=== PATIENT | female | born 1995 | race Caucasian/White ===

== ENCOUNTER → 2017-02-05 | Outpatient (CLI) | payer BC ==
[~2017-02-05] MED LIST: BCPILLS PO; OXYC5TAB PO
== END | disposition home or self-care (01) ==
LOC: C.LAB 11:08
PROVIDERS: ATTEND Physician Assistant
DX: R10.13 Epigastric pain (principal)

== ENCOUNTER → 2017-02-05 | Outpatient (CLI) | payer BC ==
--- NOTE | 2017-02-05 11:01 | DIAGNOSTIC IMAGING REPORT ---
ABDOMEN COMPLETE (US) CLINICAL HISTORY: EPIGASTRIC PAIN COMPARISON STUDY: Biliary ultrasound dated 11/02/2015 FINDINGS: The pancreas is sonographically normal. The liver is sonographically normal. There is no ductal dilatation. The gallbladder surgically absent. Common bile duct measures 4 mm. The right kidney measures 10.6 cm in length. The left kidney measures 10.8 cm in length. No renal masses are visualized. There is no hydronephrosis. The spleen measures 9.8 cm in length. No splenic masses are visualized. No abnormalities of the aorta or IVC are visualized. IMPRESSION: Surgically absent gallbladder. Otherwise unremarkable upper abdominal ultrasound Electronically signed by: Matthew Parada M.D. 02/05/2017 10:59 AM Dictated Date/Time: 02/05/2017 10:57 AM
== END | disposition home or self-care (01) ==
LOC: C.ULTRBC 10:01
PROVIDERS: ATTEND Physician Assistant
DX: R10.13 Epigastric pain (principal)